=== PATIENT | female | born 1980 | race Caucasian/White ===

== ENCOUNTER 2024-04-28 17:50 | Emergency (ER) | payer OTHER, SELFPAY ==
[2024-04-28 17:53] VITALS: BP 146/80
[2024-04-28] MEDS: TYLENOL 650 MG PO (18:02)
[2024-04-28 18:18] LABS: % Basophils 0.4 % (0-2); % Eosinophils 2.4 % (0-6); % Immature Granulocytes 0.4 % (0-0.5); % Lymphocytes 4.9 % (20.5-51.1); % Monocytes 11.7 % (1.7-9.3); % Neutrophils 80.2 % (42.2-75.2); Absolute Eosinophils 0.1 10^3/uL (0-0.7); Absolute Lymphocytes 0.2 10^3/uL (1.2-3.4); Absolute Monocytes 0.5 10^3/uL (0.1-0.6); Absolute Neutrophils 3.6 10^3/uL (1.4-6.5); Hematocrit 40.8 % (37.0-47.0); Hemoglobin 14.4 g/dL (12.0-16.0); Mean Corp Hgb Conc. 35.3 g/dL (33.0-37.0); Mean Corpuscular Hgb 33.2 pg (27.0-31.0); Mean Platelet Volume 9.6 fL (7.4-10.4); Nucleated Red Blood Cells % 0 %; Platelet Count 261 10^3/uL (130-400); Red Blood Cell Count 4.34 10^6/uL (4.20-5.40); Red Cell Dist. Width 12.4 % (11.5-14.5); White Blood Cell Count 4.5 10^3/uL (4.8-10.8)
[2024-04-28 18:30] LABS: ALT (SGPT) 26 U/L (0-35); AST (SGOT) 27 U/L (14-36); Albumin 3.4 g/dl (3.5-5.0); Alkaline Phosphatase 77 U/L (38-126); Blood Urea Nitrogen 5 mg/dl (7-17); Calcium 8.4 mg/dl (8.4-10.2); Carbon Dioxide 25 mmol/L (22-30); Chloride 100 mmol/L (98-107); Glucose 107 mg/dl (70-99); Potassium 3.9 mmol/L (3.5-5.1); Sodium 131 mmol/L (135-145); Total Bilirubin 0.5 mg/dl (0.2-1.3); Total Protein 6.6 g/dl (6.3-8.2); eGFR > 60.00
[2024-04-28 18:39] LABS: COVID-19 Antigen Negative (Negative)
--- NOTE | 2024-04-28 18:53 | ED.GENMED ---
History of Present Illness
General
Chief Complaint: Fever
Source: patient
Time Seen by Provider: 04/28/24 18:42
History of Present Illness
History of Present Illness:
43-year-old female presents emergency room complaining of fever, cough, mild shortness of breath. Symptoms began last night. Patient notes that she had a febrile illness in early March and never felt like she fully recovered from that. Then
today she developed the above symptoms causing her concern and prompting her ER visit. No nausea or vomiting. She does have body aches.
Past History
Past History
ED Past Medical History: Other (PE s/p L&D) and Other (Migraines)
ED Past Surgical History: None
Social History
Tobacco: Former smoker
Alcohol: Occasional
Drug: None
Personal:
Living: with family
Family History
Family History: Other (Mom had a stroke in her 50s.)
Phy Exam
Physical Exam
Physical Exam:
General: Awake, Alert, Oriented X3. No acute distress.
Vitals: unremarkable
Head: Atraumatic
Eyes: Pupils equal, EOMI
Throat: Airway intact, no exudates
Neck: Trachea midline
Lungs: Expiratory wheezing
Heart: Regular rate, no murmurs
Abd: Soft, Nontender, No pulsatile mass
Neuro: Nonfocal
Skin: Warm, dry, no rash
Extremities: pulses equal b/l, no edema
Sepsis
Sepsis Screening
Sepsis Assessment: Sepsis Ruled Out
Sepsis Screen
Sepsis Screen: Sepsis Ruled Out
Date: 04/28/24
Time: 20:03
Course
Orders/Labs/Results
Orders:
Orders
04/28/24 17:57
Electrocardiogram (*1) Urgent
Reason for Study: Tachycardia
EKG- Treatment ONCE
04/28/24 18:00
Acetaminophen [Tylenol] 650 mg .ROUTE .STK-MED ONE
04/28/24 18:01
Acetaminophen [Tylenol] 650 mg PO NOW STA
04/28/24 18:09
COVID-19 Antigen Urgent
Source: Nasal Swab
Complete Blood Count/With Diff Urgent
Comprehensive Metabolic Panel Urgent
Influenza A+B Rapid Molecular Urgent
NANDINI Source: Nasal Swab
Specimen Description:
04/28/24 18:49
Ipratropium/Albuterol Sulfate [Duoneb] 3 ml INH R NOW STA
04/28/24 18:58
Ibuprofen [Motrin] 400 mg PO NOW STA
Abnormal Lab Results
04/28/24
18:09
WBC 4.5 L 10^3/uL
(4.8-10.8)
MCH 33.2 H pg
(27.0-31.0)
Absolute Lymphs (auto) 0.2 L 10^3/uL
(1.2-3.4)
Neutrophils % 80.2 H %
(42.2-75.2)
Lymphocytes % 4.9 L %
(20.5-51.1)
Monocytes % 11.7 H %
(1.7-9.3)
Sodium 131 L mmol/L
(135-145)
BUN 5 L mg/dl
(7-17)
Glucose 107 H mg/dl
(70-99)
Albumin 3.4 L g/dl
(3.5-5.0)
04/28/24 18:09
04/28/24 18:09
Vital Signs
Initial and Last Documented VS:
Initial Vital Signs
Temp Pulse Resp BP Pulse Ox
103.0 F H 130 20 146/80 100
04/28/24 17:53 04/28/24 17:53 04/28/24 17:53 04/28/24 17:53 04/28/24 17:53
Last Documented Vital Signs
Temp Pulse Resp BP Pulse Ox
101.7 F H 130 20 122/73 96
04/28/24 19:00 04/28/24 17:53 04/28/24 17:53 04/28/24 19:00 04/28/24 19:07
MDM/Problems Addressed
Differential Diagnosis Includes:
Pneumonia, COVID, influenza
MDM/Problems Addressed:
Patient presents with fever, cough sore throat etc. Patient tested positive for flu A. She did not have a flu vaccine this year. Suspect she will be ill for the next 5 to 7 days at least. Patient stable for discharge home. Recommend follow-up
for worsening shortness of breath or inability tolerate oral intake.
*Pulse Oximetry
Patient hypoxic: no
*EKG
Interpreted by ED Provider?: Yes
Heart Rate: 113
Rate: tachycardiac
Rhythm: sinus tachycardia
Interval: normal interval
QRS Pattern: normal QRS
Ischemia: no ischemia
*Stand Up Comedian Interpretation
Rate: tachycardiac
Interpretation: abnormal
Heart Rate: 113
Rhythm: sinus tachycardia
*Critical Care Note
Total Time (30-74mins, 75-104mins- exclusive of procedures): Not Applicable
ED Attending Note
-
Portions of this chart may have been created with voice recognition software.� Occasional wrong word or��sound alike� substitutions may have occurred due to the inherent limitations of voice recognition software.
Discharge Plan
Departure
Patient Disposition: Home (Routine Discharge)
Date of Disposition: 04/28/24
Time of Disposition: 19:45
Patient with high blood pressure during this ER visit?: No
Condition: Good
Discharge Problem:
Influenza A, Fever
Instructions: Flu in adults - ED discharge instructions
Prescriptions:
No Action
metoprolol succinate [Toprol XL] 25 mg tablet extended release 24 hr
25 mg PO HS Qty: 30 0RF
furosemide 20 mg Tablet
20 mg PO DAILY
Interventions
Interventions:
*Risk Screen - Suicide Last Done: 04/28/24 17:53
*General Assessment Last Done: 04/28/24 17:53
*Neglect/Abuse Screening Last Done: 04/28/24 19:07
ED- Fall Risk Assessment Last Done: 04/28/24 19:07
*ED COVID-19 Vaccine History Last Done: 04/28/24 17:53
*Nursing Disposition Last Done: 04/28/24 19:54
ED- Neurological Assessment Last Done: 04/28/24 19:07
ED-Skin Assessment Last Done: 04/28/24 19:07
Discharge Date and Time
Discharge Date/Time: 04/28/24 19:58
Print Language: DUTCH
[2024-04-28 18:57] VITALS: BP 125/73
[2024-04-28 19:00] VITALS: BP 122/73
[2024-04-28] MEDS: DUONEB 3 ML INH (19:05)
[2024-04-28] MEDS: MOTRIN 400 MG PO (19:05)
[2024-04-28 19:07] VITALS: BMI 19.5
== END 2024-04-28 19:58 | disposition home or self-care (01) ==
LOC: EMR 17:50
PROVIDERS: Emergency Medicine; EMERGENCY PHYSICIAN Emergency Medicine
DX: J10.1 Influenza due to other identified influenza virus with other respiratory manifestations (principal); Z87.891 Personal history of nicotine dependence
CPT/HCPCS: 99284; 94640; 80053; 85025; 87502; 87811; 93005